=== PATIENT | female | born 1990 ===

== ENCOUNTER 2018-12-20 14:36 | Emergency (ER) | payer SELFPAY ==
[2018-12-20] MEDS ORDERED: KETOROLAC TROMETHAMINE 60 MG/2 ML VIAL IM ONE (14:55)
[2018-12-20] MEDS ORDERED: PROMETHAZINE HCL 25 MG/ML VIAL ONE (14:55)
[2018-12-20] MEDS ORDERED: diphenhydrAMINE HCL 50 MG/ML VIAL ONE (14:55)
== END 2018-12-20 15:49 ==
LOC: ED 14:36
DX: R51 Headache (principal); H53.149 Visual discomfort, unspecified
CPT/HCPCS: 96372; 99282; 99283; J1200; J1885; J2550

== ENCOUNTER 2019-01-09 08:43 | Emergency (ER) | payer SELFPAY ==
--- NOTE | 2019-01-09 08:54 | ED Physician Documentation ---
Foot Injury - HISTORIAN Historian: patient - HPI Chief Complaint: Foot Injury (Left Great Toe) Additional Information: Patient is a 28-year-old female who presents ambulatory to the ER with c/o left great toe pain that started 2 days ago. She states that she almost tripped and hyperextended her left great toe. She works at the [employer] and has been walking and standing > 8 hour shifts. Onset: days ago (2) Where: home Severity: mild Context: twist Associated Symptoms:: swelling Modifying Factors:: pain on movement - ROS CONST: no problems CVS/RESP: none NEURO: denies: head injury GI/: denies: nausea MS/SKIN/LYMPH: none - PAST HX Past History: none Immunizations: UTD Allergies/Adverse Reactions: Allergies Allergy/AdvReac Type Severity Reaction Status Date / Time No Known Allergies Allergy Verified 01/09/19 08:56 Home Medications: Ambulatory Orders Medication Instructions Recorded NK 01/09/19 - SOCIAL HX Smoking History: greater than 1 pack/day Alcohol Use: none Drug Use: none - FAMILY HX Family History: none - REVIEWED ASSESSMENTS Nursing Assessment Reviewed: Yes Vitals Reviewed: Yes Progress - Progress Progress: 09:40 Patient feeling much better after Toradol 09:45 Discussed results of X-ray- will put patient in a post op shoe ED Results Lab/Radiology - Radiology Radiology Impressions: EXAMINATION: TOES 2 VIEWS OR MORE HISTORY: stubbed left great toe 2 days ago, increasing pain (Hx) COMPARISON: None FINDINGS: The osseous structures are intact and well aligned without acute fracture or dislocation. The joint spaces are preserved. Bone density is normal. No soft tissue swelling is seen. IMPRESSION: No acute fracture or dislocation identified. - Orders Orders: ED Orders Category Date Time Status TOES 2 VIEWS OR MORE [RAD] Stat Exams 01/09/19 Ordered Ketorolac Tromethamine [Toradol] Med 01/09/19 08:52 Once 60 mg IM NOW ONE Foot Injury Physical Exam - Physical Exam General Appearance: alert, mild distress Foot: left foot: soft tissue tenderness (left great toe), swelling (left great toe), bilateral foot: non-tender, normal inspection Ankle: bilateral: non-tender, normal inspection Gait: normal Neuro: sensation nml, motor nml Vascular: no vascular compromise Tendons: tendon function nml Leg/Knee/Thigh: uninjured above ankle Skin: intact, warm Head/ENT: nml inspection Neck/Back: nml inspection Resp/CVS: breath sounds nml, heart sounds nml Discharge Clincal Impression: Contusion of great toe of left foot Referrals: Primary Doctor,No [Primary Care Provider] - 2 Days Additional Instructions: Wear walking shoe Keep elevated when you can Use ice Take Naproxen 500mg by mouth twice a day Condition: Good Disposition: 01 HOME, SELF-CARE Decision to Admit: NO Decision Time: 09:46
[2019-01-09] MEDS: KETOROLAC TROMETHAMINE 60 MG/2 ML VIAL IM ONE (09:02)
[2019-01-09 09:09] VITALS: BP 133/91
--- NOTE | 2019-01-09 13:25 | Diagnostic Imaging Report ---
DAMON GEORGE [facility] [id number] [facility] [address] [place] [address]. [id number] Report Submission Date: Jan 09, 2019 9:41:45 AM CDT Patient Study Name: HIMANSHU OVIEDO Date: Jan 09, 2019 9:09:39 AM CDT Modality Type: DX Gender: F Description: TOES 2 VIEWS OR MORE : 89 Institution: [facility] Physician: DAMON GEORGE EXAMINATION: TOES 2 VIEWS OR MORE HISTORY: stubbed left great toe 2 days ago, increasing pain (Hx) COMPARISON: None FINDINGS: The osseous structures are intact and well aligned without acute fracture or dislocation. The joint spaces are preserved. Bone density is normal. No soft tissue swelling is seen. IMPRESSION: No acute fracture or dislocation identified. Electronically signed on Jan 09, 2019 9:41:45 AM CDT by: Prince GREEN
== END 2019-01-09 09:46 | disposition home or self-care (01) ==
LOC: ED 08:43
DX: S90.112A Contusion of left great toe without damage to nail, initial encounter (principal); F17.210 Nicotine dependence, cigarettes, uncomplicated; X58.XXXA Exposure to other specified factors, initial encounter; Y93.01 Activity, walking, marching and hiking; Y92.59 Other trade areas as the place of occurrence of the external cause; Y99.8 Other external cause status
CPT/HCPCS: 73660; 96372; 99284; J1885